=== PATIENT | female | born 1995 | race Caucasian/White ===

== ENCOUNTER 2019-04-12 20:43 | Emergency (ER) | payer OTHER ==
[~2019-04-12] VITALS: Ht 180.3 cm; Wt 63.5 kg
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
[2019-04-12] MEDS ORDERED: Ketorolac 30mg Inj IV ONE (21:15)
[2019-04-12] MEDS ORDERED: Metoclopramide 10mg/2ml Inj IVP ONE (21:15)
[2019-04-12 21:28] VITALS: BP 133/89
--- NOTE | 2019-04-12 21:33 | Diagnostic Imaging Report ---
Indications: Headache Technique: Spiral acquisitions obtained through the brain. Angled axial and coronal 5 x 5 mm slices were reconstructed. Total dose length product 1364 mGycm. CTDI vol(s) 60 mGy. Dose reduction achieved using automated exposure control Comparison: None. Findings: No acute fractures. No dislocations. Joint spaces are preserved. Normal peña-white differentiation. Normal size ventricles and extra axial CSF spaces. Visualized orbits and sinuses are unremarkable. The mastoids are clear. Impression: Negative This agrees with the preliminary interpretation provided overnight by [facility]. The CT scanner at [facility] is accredited by the [employer] and the scans are performed using protocols designed to limit radiation exposure to as low as reasonably achievable to attain images of sufficient resolution adequate for diagnostic evaluation.
[2019-04-12] MEDS ORDERED: FIORICET1 EA ORAL (21:52)
[2019-04-12 21:58] VITALS: BP 133/89
== END 2019-04-12 21:58 | disposition home or self-care (01) ==
LOC: EMR 21:15
DX: R51 Headache (principal)
CPT/HCPCS: 70450; 96374; 96375; 99284; J1885; J2765